=== PATIENT | female | born 1945 | race Caucasian/White ===

== ENCOUNTER 2021-03-10 13:41 | Inpatient (IN) | payer OTHER, SELFPAY ==
[2021-03-10] VITALS (14 sets, daily range): BP systolic 110–150; BP diastolic 53–67; PULSE 65–104; RESP 10–20; TEMP 36.3–37.2; O2SAT 96–100; BMI 29.4
--- NOTE | 2021-03-10 13:45 | ED_ITS ---
HPI - GI Bleed General Chief complaint: GI Bleed Stated complaint: rectal bleeding, started 3 days ago, shaky, weak Time Seen by Provider: 03/10/21 13:44 Source: patient and family Mode of arrival: Ambulatory Limitations: no limitations History of Present Illness HPI Narrative: 75-year-old female nonsmoker with noncontributory medical history presents with a chief complaint of painless bright red bleeding per rectum over the past few days which has progressively become dark and is now black. She is dizzy, weak, lightheaded and short of breath. She denies any history of alcohol abuse, blood thinners, use of NSAIDs, gastritis or known ulcers. Her last colonoscopy was many years ago and she does not recall any significant or memorable diagnoses as a consequence. She has had no vomiting and denies any pain whatsoever. She denies chest pain. She gets significantly short of breath and fatigued with minimal exertion. Related Data Home Medications Medication Instructions Recorded Confirmed levothyroxine 88 mcg PO DAILY 03/10/21 03/10/21 Allergies Allergy/AdvReac Type Severity Reaction Status Date / Time No Known Drug Allergies Allergy Verified 03/10/21 14:07 Review of Systems Constitutional Constitutional: Denies chills, Reports fatigue, Denies fever(s), Denies frequent falls, Denies lethargy and Reports weakness Eyes Eyes: Denies change in vision, Denies eye discharge, Denies irritation and Denies loss of vision ENT Ears, Nose, Mouth, and Throat: Denies change in voice, Denies dizziness, Denies neck pain, Denies sore throat and Denies throat swelling Cardiovascular Cardiovascular: Denies chest pain, Denies irregular heart rhythm, Denies lightheadedness, Denies palpitations, Denies dyspnea, Denies dyspnea on exertion and Denies orthopnea Respiratory Respiratory: Denies cough, Denies dyspnea, Denies dyspnea on exertion and Denies wheezing Gastrointestinal Gastrointestinal: Denies abdominal pain, Reports hematochezia, Denies change in bowel habits, Denies diarrhea, Denies nausea and Denies vomiting Musculoskeletal Musculoskeletal: Denies neck pain and Denies numbness Integumentary/Breasts Skin/Breast: Denies pruritus, Denies erythema, Denies rash and Denies wounds Neurologic Neurologic: Denies behavioral changes, Denies confusion, Denies dizziness, Denies frequent falls, Denies loss of vision, Denies numbness and Reports weakness Psychiatric Psychiatric: Denies anxiety, Denies behavioral changes, Denies confusion, Denies depression, Denies homicidal ideation and Denies suicidal ideation Endocrine Endocrine: Reports fatigue, Denies flushing and Denies palpitations Hematologic/Lymphatic Hematologic/Lymphatic: Denies easy bruising Allergic/Immunologic Allergic/Immunologic: Denies urticaria, Denies throat swelling and Denies wheezing Patient History Medical History Hypothyroidism Osteoarthritis Surgical History H/O: hysterectomy History of bilateral knee replacement History of hip surgery Social History household members: spouse Smoking Status: Never smoker Smoking Status: Never smoker alcohol intake frequency: 0-2 drinks per day Substance Use Type: does not use Exam Narrative Exam Narrative: GENERAL: [75] year old patient appears stated age. Well- nourished, well-developed patient, in moderate distress, significantly short of breath with exertion required to get herself into the exam room. HEAD: Atraumatic. Normocephalic. EYES: Pale conjunctiva, Pupils equal round and reactive. Extraocular motions intact. No scleral icterus. No injection or drainage. ENT: Nose without bleeding, purulent drainage. Throat without erythema, tonsillar hypertrophy or exudate. Airway patent. NECK: Trachea midline. Non tender CARDIOVASCULAR: Tachycardic but right rhythm without murmurs, gallops, or rubs. RESPIRATORY: Clear to auscultation. Breath sounds equal bilaterally. No wheezes, rales, or rhonchi. GASTROINTESTINAL: Abdomen soft, non-tender, nondistended. RECTAL: Dark, heme-positive stool, no obvious hemorrhoid or fissure. Performed with patient permission and female nursing feed research aide at the bedside EXTREMITIES: No edema or joint tenderness. BACK: Nontender without deformity or crepitance. No flank tenderness. NEURO: AOx3. SKIN: No rash or erythema of visible areas Initial Vital Signs Initial Vital Signs: Vital Signs Temperature 98.1 F 03/10/21 13:42 Pulse Rate 104 H 03/10/21 13:42 Respiratory Rate 18 03/10/21 13:42 Blood Pressure 150/67 H 03/10/21 13:42 Pulse Oximetry 99 03/10/21 13:42 Course Orders Ordered: ED Orders 03/10/21 13:57 Complete Blood Count AUTO DIFF Stat Comprehensive Metabolic Panel Stat Packed Cells Stat Partial Thromboplastin Time Stat Prothrombin Time INR Stat Type and Screen Stat 03/10/21 14:45 COVID19 - ADMIT (OVEN PRESS TENDER swab/PCR) Stat Acetaminophen (Acetaminophen 325 Mg Tablet) 650 mg PO Q6HR PRN PRN Reason: Fever/Mild Pain (1-3) Sodium Chloride (Normal Saline 0.9%) 1,000 mls @ 75 mls/hr IV CONT JOAQUIN Sodium Chloride (Normal Saline 0.9%) 250 mls @ 21 mls/hr IV Q24H PRN PRN Reason: Flush Last Admin: 03/10/21 17:59 Dose: 21 mls/hr Documented by: LAMBERT Morphine Sulfate (Morphine 2 Mg/Ml Inj) 2 mg IV Q4HR PRN PRN Reason: Pain, Moderate (4-6) Naloxone HCl (Naloxone 0.4 Mg/Ml Vial) 0.2 mg IV Q2MIN PRN PRN Reason: Opiate Reversal Ondansetron HCl (Ondansetron 4 Mg/2 Ml Inj) 4 mg IV Q8HR PRN PRN Reason: Nausea And Vomiting Pantoprazole Sodium (Pantoprazole 40 Mg Vial) 40 mg IV BID JOAQUIN Polyethylene Glycol/Electrolytes ([id number]/Sod Sulf,Bicarb,Cl/Kcl 4,000 Ml Solution) 2,000 ml PO 0600 JOAQUIN Discontinued Medications Influenza Virus Vaccine (Influenza Vaccine 0.5 Ml Syringe) 0.5 ml IM .ONCE ONE Stop: 03/10/21 17:49 Last Admin: 03/10/21 18:10 Dose: 0.5 ml Documented by: RERERAMTrish Ondansetron HCl (Ondansetron 4 Mg/2 Ml Inj) 4 mg IV NOW ONE Stop: 03/10/21 13:54 Last Admin: 03/10/21 14:04 Dose: 4 mg Documented by: MARIA ELENA Pantoprazole Sodium (Pantoprazole 40 Mg Vial) 40 mg IV NOW ONE Stop: 03/10/21 15:08 Last Admin: 03/10/21 15:51 Dose: 40 mg Documented by: MARIA ELENA Polyethylene Glycol/Electrolytes ([id number]/Sod Sulf,Bicarb,Cl/Kcl 4,000 Ml Solution) 4,000 ml PO NOW ONE Stop: 03/10/21 17:39 Consultations Consultation #1: Dr. Loomis has been contacted, she is happy with our plan and will be happy to be involved when consulted by hospitalist service Vital Signs Vital signs: Vital Signs - 8 hr 03/10/21 13:42 03/10/21 15:00 03/10/21 15:24 Temperature 98.1 F 98.3 F Pulse Rate 104 H 73 76 Respiratory Rate 18 20 14 Blood Pressure 150/67 H 115/57 L 122/58 L Pulse Oximetry 99 96 03/10/21 15:39 03/10/21 16:00 03/10/21 16:24 Temperature 97.9 F 98 F Pulse Rate 76 77 77 Respiratory Rate 17 16 20 Blood Pressure 121/55 L 115/56 L 115/56 L Pulse Oximetry 99 03/10/21 16:43 03/10/21 17:00 Temperature 97.9 F Pulse Rate 72 73 Respiratory Rate 15 19 Blood Pressure 110/53 L 110/53 L Pulse Oximetry 96 MDM - GI Bleed Lab Data Result diagrams: 03/10/21 13:57 03/10/21 13:57 Labs: Lab Results 03/10/21 03/10/21 03/10/21 Range/Units 13:57 13:57 13:57 WBC 10.1 (4.5-11.0) X10^3/uL RBC 2.46 L (4.0-5.2) X10^6/uL Hgb 7.1 L (12.0-16.0) g/dL Hct 21.3 L (36-46) % MCV 86.7 (80-100) fL MCH 29.0 (26-34) PG MCHC 33.4 (30-36) % RDW 13.7 (11.6-14.8) % Plt Count 245 (150-400) X10^3/uL Neut % (Auto) 70.1 (50-75) % Lymph % (Auto) 21.3 L (25-40) % [place] % (Auto) 6.5 (3-14) % Eos % (Auto) 0.9 L (2-4) % Baso % (Auto) 1.2 (0-2) % Neut # (Auto) 7100 H (4881-4675) /uL Lymph # (Auto) 2100 (9596-3969) /uL [place] # (Auto) 700 (0-900) /uL Eos # (Auto) 100 (0-450) /uL Baso # (Auto) 100 (0-100) /uL PT 11.3 (10.1-12.7) SECONDS INR 1.0 (0.9-1.3) APTT 28 (26.4-36.2) SECONDS Sodium 137 (137-145) mmol/L Potassium 3.7 (3.4-5.1) mmol/L Chloride 107 (98-107) mmol/L Carbon Dioxide 22 (22-32) mmol/L BUN 18 H (7-17) mg/dL Creatinine 0.72 (0.52-1.04) mg/dL Estimated GFR > 60.0 (>60) mL/min BUN/Creatinine Ratio 25.0 H (6-22) Glucose 136 H (80-110) mg/dL Calcium 8.7 (8.4-10.2) mg/dL Total Bilirubin 0.1 L (0.2-1.3) mg/dL AST 46 H (14-36) IU/L ALT 41 H (<35) IU/L Alkaline Phosphatase 81 (38-126) U/L Total Protein 6.7 (6.3-8.2) g/dL Albumin 3.7 (3.5-5.0) g/dL Globulin 3.0 (1.7-4.1) g/dL Albumin/Globulin Ratio 1.2 (1.0-2.8) SARS-CoV-2 (PCR) (Negative) Blood Type Antibody Screen Crossmatch 03/10/21 03/10/21 Range/Units 13:57 14:45 WBC (4.5-11.0) X10^3/uL RBC (4.0-5.2) X10^6/uL Hgb (12.0-16.0) g/dL Hct (36-46) % MCV (80-100) fL MCH (26-34) PG MCHC (30-36) % RDW (11.6-14.8) % Plt Count (150-400) X10^3/uL Neut % (Auto) (50-75) % Lymph % (Auto) (25-40) % [place] % (Auto) (3-14) % Eos % (Auto) (2-4) % Baso % (Auto) (0-2) % Neut # (Auto) (3863-7756) /uL Lymph # (Auto) (4185-5706) /uL [place] # (Auto) (0-900) /uL Eos # (Auto) (0-450) /uL Baso # (Auto) (0-100) /uL PT (10.1-12.7) SECONDS INR (0.9-1.3) APTT (26.4-36.2) SECONDS Sodium (137-145) mmol/L Potassium (3.4-5.1) mmol/L Chloride (98-107) mmol/L Carbon Dioxide (22-32) mmol/L BUN (7-17) mg/dL Creatinine (0.52-1.04) mg/dL Estimated GFR (>60) mL/min BUN/Creatinine Ratio (6-22) Glucose (80-110) mg/dL Calcium (8.4-10.2) mg/dL Total Bilirubin (0.2-1.3) mg/dL AST (14-36) IU/L ALT (<35) IU/L Alkaline Phosphatase (38-126) U/L Total Protein (6.3-8.2) g/dL Albumin (3.5-5.0) g/dL Globulin (1.7-4.1) g/dL Albumin/Globulin Ratio (1.0-2.8) SARS-CoV-2 (PCR) Negative (Negative) Blood Type A Negative Antibody Screen Negative Crossmatch See Detail Point of Care Testing Stool Occult Blood Positive Urine Dip Bedside Urine Glucose Negative Bedside Urine Bilirubin - Negative Bedside Urine Ketone - Negative Urine Specific Clarinda 1.015 Bedside Urine Occult Blood - Negative Bedside Urine pH 6.0 Bedside Urine Protein - Negative Bedside Urine Urobilinogen - Negative Bedside Urine Nitrite - Negative Bedside Urine Leukocytes - Negative Esterase Discharge Plan Departure Patient Disposition: Admitted as Observation Clinical Impression: Lower gastrointestinal hemorrhage Admit Date/Time: 03/10/21 17:07 Admit Provider: Rodolfo Lainez
[2021-03-10] MEDS: ONDANSETRON 4 MG/2 ML INJ IV (14:04)
[2021-03-10 14:08] LABS: Add Manual Diff / Slide Review NO; Basophils Absolute Auto 100 /uL (0-100); Basophils Percent Auto 1.2 % (0-2); Eosinophils Absolute Auto 100 /uL (0-450); Eosinophils Percent Auto 0.9 % (2-4); Hematocrit 21.3 % (36-46); Hemoglobin 7.1 g/dL (12.0-16.0); Lymphocytes Absolute Auto 2100 /uL (1100-4500); Lymphocytes Percent Auto 21.3 % (25-40); Mean Corpuscular HGB Conc 33.4 % (30-36); Mean Corpuscular Volume 86.7 fL (80-100); Monocytes Absolute Auto 700 /uL (0-900); Monocytes Percent Auto 6.5 % (3-14); Neutrophils Absolute Auto 7100 /uL (1500-7000); Neutrophils Percent Auto 70.1 % (50-75); Platelet Count 245 X10^3/uL (150-400); Red Blood Cell Count 2.46 X10^6/uL (4.0-5.2); Red Cell Distribution Width 13.7 % (11.6-14.8); White Blood Cell Count 10.1 X10^3/uL (4.5-11.0)
[2021-03-10 14:17] LABS: Prothrombin Time 11.3 SECONDS (10.1-12.7)
[2021-03-10 14:20] LABS: PTT Partial Thromboplastin Tim 28 SECONDS (26.4-36.2)
[2021-03-10 14:26] LABS: Alanine Aminotransferase 41 IU/L (<35); Albumin 3.7 g/dL (3.5-5.0); Albumin Globulin Ratio 1.2 (1.0-2.8); Alkaline Phosphatase 81 U/L (38-126); Aspartate Aminotransferase 46 IU/L (14-36); Bilirubin Total 0.1 mg/dL (0.2-1.3); Blood Urea Nitrogen 18 mg/dL (7-17); Calcium 8.7 mg/dL (8.4-10.2); Carbon Dioxide 22 mmol/L (22-32); Chloride 107 mmol/L (98-107); Estimated Glomerular Filt Rate > 60.0 mL/min (>60); Glucose 136 mg/dL (80-110); HEMOLYSIS < 15 (0-50); Potassium 3.7 mmol/L (3.4-5.1); Sodium 137 mmol/L (137-145); Total Protein 6.7 g/dL (6.3-8.2)
--- NOTE | 2021-03-10 15:43 | PM.CN ---
History of Present Illness Consult details Date Patient Seen: 03/10/21 Time Patient Seen: 19:14 Chief complaint: rectal bleeding, started 3 days ago, shaky, weak Reason for consult: GI bleed Requesting provider: Aneudy Ovalle Narrative: This is a 75-year-old woman with h/o osteoarthritis and hypothyroidism who presented to the ER with c/o 3 days of rectal bleeding and LE edema. She initally had several large bloody bowel movements, which have then transitioned over several days smaller amounts of black stools. She c/o being more short of breath and dizzy with exertion. She denies any chest pain, palpitations, orthopnea. She does report lower extremity edema. She denies prior GI bleeding. She takes Aleve and tylenol from time to time. She has taken 18 ibuprofen over the four days prior to starting to bleed. She had a mild upset stomach yesterday with this had largely resolved. She reports mild nausea, denies vomiting including hematemesis. Her last colonoscopy was more than 15 years ago. Since then she does yearly cologuard tests. She denies any lower abdominal pain. She denies any history of family members with colon cancer. ROS: Constitutional: Denies chills, Reports fatigue, Denies fever(s), Denies frequent falls, Denies lethargy and Reports weakness Eyes: Denies change in vision, Denies eye discharge, Denies irritation and Denies loss of vision Ears, Nose, Mouth, and Throat: Denies change in voice, Denies dizziness, Denies neck pain, Denies sore throat and Denies throat swelling Cardiovascular: Denies chest pain, Denies irregular heart rhythm, Denies lightheadedness, Denies palpitations, Denies dyspnea, Denies dyspnea on exertion and Denies orthopnea Respiratory: Denies cough, Denies dyspnea, Denies dyspnea on exertion and Denies wheezing Gastrointestinal: Denies abdominal pain, Reports hematochezia, Denies change in bowel habits, Denies diarrhea, Denies nausea and Denies vomiting Musculoskeletal: Denies neck pain and Denies numbness Skin/Breast: Denies pruritus, Denies erythema, Denies rash and Denies wounds Neurologic: Denies behavioral changes, Denies confusion, Denies dizziness, Denies frequent falls, Denies loss of vision, Denies numbness and Reports weakness Psychiatric: Denies anxiety, Denies behavioral changes, Denies confusion, Denies depression, Denies homicidal ideation and Denies suicidal ideation Endocrine: Reports fatigue, Denies flushing and Denies palpitations Hematologic/Lymphatic: Denies easy bruising Allergic/Immunologic: Denies urticaria, Denies throat swelling and Denies wheezing PE: GENERAL: Well groomed and cooperative. Appears stated age. Answers questions promptly and appropriately. Vital signs noted. HENT: Normocephalic, atraumatic. Hearing intact. EYES: Conjunctiva pink, sclera white, no periorbital swelling. CARDIOVASCULAR: Regular rate. trace BL pedal edema. RESPIRATORY: Non-tachypneic, breathing comfortably on room air. GASTROINTESTINAL: Abdomen soft and non-distended; nontender GENITALURINARY: No flank tenderness. MUSCULOSKELETAL: Equal tone and mass bilaterally. SKIN: Warm, dry, soft, appropriate color for ethnicity. No other lesions, rashes, or wounds. NEURO: Alert and Oriented X 3. No gross sensory deficits, or cognitive issues. PSYCH: Appropriate affect and mood. Meds Home Medications and Allergies Home Medications Medication Instructions Recorded Confirmed Type levothyroxine 88 mcg PO DAILY 03/10/21 03/10/21 History Allergies Allergy/AdvReac Type Severity Reaction Status Date / Time No Known Drug Allergies Allergy Verified 03/10/21 14:07 Exam Vital Signs (past 8 hours): - 03/10/21 13:42 03/10/21 15:24 Temperature 98.1 F 98.3 F Pulse Rate 104 H 76 Respiratory Rate 18 14 Blood Pressure 150/67 H 122/58 L Pulse Oximetry 99 Oxygen Delivery Method Room Air Objective Labs Result Diagrams: 03/10/21 13:57 03/10/21 13:57 Labs: Laboratory Results - last 24 hr 03/10/21 03/10/21 03/10/21 13:57 13:57 13:57 WBC 10.1 RBC 2.46 L Hgb 7.1 L Hct 21.3 L MCV 86.7 MCH 29.0 MCHC 33.4 RDW 13.7 Plt Count 245 Neut % (Auto) 70.1 Lymph % (Auto) 21.3 L [place] % (Auto) 6.5 Eos % (Auto) 0.9 L Baso % (Auto) 1.2 Neut # (Auto) 7100 H Lymph # (Auto) 2100 [place] # (Auto) 700 Eos # (Auto) 100 Baso # (Auto) 100 PT 11.3 INR 1.0 APTT 28 Sodium 137 Potassium 3.7 Chloride 107 Carbon Dioxide 22 BUN 18 H Creatinine 0.72 Estimated GFR > 60.0 BUN/Creatinine Ratio 25.0 H Glucose 136 H Calcium 8.7 Total Bilirubin 0.1 L AST 46 H ALT 41 H Alkaline Phosphatase 81 Total Protein 6.7 Albumin 3.7 Globulin 3.0 Albumin/Globulin Ratio 1.2 Blood Type Antibody Screen Crossmatch 03/10/21 13:57 WBC RBC Hgb Hct MCV MCH MCHC RDW Plt Count Neut % (Auto) Lymph % (Auto) [place] % (Auto) Eos % (Auto) Baso % (Auto) Neut # (Auto) Lymph # (Auto) [place] # (Auto) Eos # (Auto) Baso # (Auto) PT INR APTT Sodium Potassium Chloride Carbon Dioxide BUN Creatinine Estimated GFR BUN/Creatinine Ratio Glucose Calcium Total Bilirubin AST ALT Alkaline Phosphatase Total Protein Albumin Globulin Albumin/Globulin Ratio Blood Type A Negative Antibody Screen Negative Crossmatch See Detail Assessment & Plan Assessment and plan (1) Lower gastrointestinal hemorrhage: Status: Acute (2) Hypothyroidism: Status: Inactive Assessment & Plan narrative: This is a 75-year-old woman who came into the ER with 3 days of bright red blood per rectum. Sounds like she does at times take a significant amount of NSAIDs, especially in this past week. She says she took 18 ibuprofen between Wednesday and Wednesday. She denies any rectal pain, abdominal pain, perianal swelling, prolapsing tissue from the rectum. She reports some nausea and a little bit of epigastric discomfort. I discussed with her the risks and benefits of EGD and colonoscopy to rule out an upper lower GI bleed. Risk of bleeding or perforation, and the risks of anesthesia were discussed. The patient would like to go ahead with both upper and lower endoscopy. She is getting transfused right now. I recommend that she start bowel prep this evening, and take a 2nd round a bowel prep in the morning, concluding everything by 8:00 a.m.. She can have clear liquids to drink this evening, and should stop all additional clear liquids at 8:00 a.m.. Clear liquids until six AM 4L golytely now 2L golytely at 6AM EGD and colonoscopy tomorrow at 12PM
[2021-03-10] MEDS: PANTOPRAZOLE 40 MG VIAL IV ×2 (15:51→20:58)
[2021-03-10 16:43] LABS: COVID19 - ADMIT (NP swab/PCR) Negative (Negative)
[2021-03-10] MEDS: SODIUM CHLORIDE 0.9% 250 ML 21 ML IV (17:59)
--- NOTE | 2021-03-10 18:08 | PM.HP.1 ---
History of Present Illness History of Present Illness Date Patient Seen: 03/10/21 Time Patient Seen: 18:10 Chief complaint: rectal bleeding, started 3 days ago, charles sandoval Narrative: This is a 75-year-old female with a past medical history of osteoarthritis and hypothyroidism who presented to the emergency room with fatigue and rectal bleeding that started 3 days ago. Patient was recently in [place] with her family, having left on Wednesday. During the airport on her return trip home she noticed that she was quite a bit more fatigued after walking the length of the airport. Once arriving at home she largely stayed in bed but then later that evening had an episode bright red blood per rectum. It was large and then over the next day transition to a smaller and smaller amount of very black stools. She denies being any more pale than usual this time but was quite a bit more short of breath and dizzy with exertion. She denies any chest pain, palpitations, orthopnea, or lower extremity edema. She denies prior GI bleeding, her grandson stepped on her right ankle and had been taking some NSAIDs over the prior few days. She had a mild upset stomach yesterday with this had largely resolved, and she denies any nausea, or vomiting including hematemesis. Her last colonoscopy was more than 15 years ago but the patient has been doing either FOBT testing or fit testing every year which has been unremarkable to this point. She denies any previous issues with anesthesia. She denies any history of family members with colon cancer. In the emergency room, the patient was mildly tachycardic and initially hypertensive. She was saturating well on room air. Initial lab evaluation showed a hemoglobin of 7.1 with no other remarkable findings on CBC, MCV is 86.7. Coagulation studies were unremarkable. Chemistries showed a mildly elevated glucose at 1:36 a.m., mild elevations in her transaminase levels at AST of 46 and ALT of 41 respectively. COVID-19 testing was negative. She was ordered for 2 units of packed red blood cells, I evaluated the patient after her 1st unit and she was asymptomatic and felt improved. Will hold the 2nd unit for now pending repeat H&H. If it has responded appropriately, will discontinue her 2nd unit. Patient was admitted under observation status for acute blood loss anemia secondary to GI bleed. According to General surgery, Dr. Loomis, plan is for EGD and colonoscopy tomorrow at noon and she should receive 4 L of GoLYTELY this evening, with 2 L to be given tomorrow morning at 6:00 a.m.. Patient History Medical History Hypothyroidism Osteoarthritis Surgical History H/O: hysterectomy History of bilateral knee replacement History of hip surgery Family & Social History Social History: household members spouse Prior Living Arrangements House Safety & Behavioral: Feels Safe in Current Yes Environment Been Physically Hurt or No Threatened By a Person Tobacco & Substance use: Smoking Status Never smoker alcohol intake frequency 0-2 drinks per day Substance Use Type reports rare edible marijuana Meds Home Medications and Allergies Home Medications Medication Instructions Recorded Confirmed Type levothyroxine 88 mcg PO DAILY 03/10/21 03/10/21 History Allergies Allergy/AdvReac Type Severity Reaction Status Date / Time No Known Drug Allergies Allergy Verified 03/10/21 14:07 Review of Systems Review of Systems Narrative: All other systems reviewed with the patient and are negative unless otherwise stated. Exam Vital Signs (past 8 hours): - 03/10/21 13:42 03/10/21 15:00 03/10/21 15:24 Temperature 98.1 F 98.3 F Pulse Rate 104 H 73 76 Respiratory Rate 18 20 14 Blood Pressure 150/67 H 115/57 L 122/58 L Pulse Oximetry 99 96 03/10/21 15:39 03/10/21 16:00 03/10/21 16:24 Temperature 97.9 F 98 F Pulse Rate 76 77 77 Respiratory Rate 17 16 20 Blood Pressure 121/55 L 115/56 L 115/56 L Pulse Oximetry 99 03/10/21 16:43 03/10/21 17:00 03/10/21 17:15 Temperature 97.9 F 98.3 F Pulse Rate 72 73 77 Respiratory Rate 15 19 10 L Blood Pressure 110/53 L 110/53 L 122/58 L Pulse Oximetry 96 98 Oxygen Delivery Method Room Air Oxygen Flow Rate 0 Narrative Exam Narrative: GENERAL APPEARANCE: Well developed, well nourished, in no acute distress. SKIN: Inspection of the skin reveals no rashes, ulcerations or petechiae. HEENT: Normocephalic atraumatic, extraocular muscles are intact, oropharynx is clear and mucous membranes are moist, neck is supple without adenopathy NECK: Supple and symmetric. There was no thyroid enlargement, and no tenderness, or masses were felt. CHEST: Normal AP diameter and normal contour without any kyphoscoliosis. LUNGS: Auscultation of the lungs revealed no wheezes, rhonchi, or rales. CARDIOVASCULAR: There was a regular rate and rhythm without any murmurs, gallops, rubs. Peripheral pulses were 2+ and symmetric. ABDOMEN: Soft and nontender with normal bowel sounds. No ascites was noted. MUSCULOSKELETAL: There was mild tenderness to the patient's right ankle with mild ecchymosis in her ankle. She had no lateral malleolar tenderness, and has been able to ambulate on her ankle without pain. EXTREMITIES: No cyanosis, clubbing or edema. NEUROLOGIC: Alert and oriented x 3. Normal affect. Gait was normal. Strength is +5/5 in the Upper Extremities and Lower Extremities Bilaterally. Sensation to touch was normal. Objective Labs Result Diagrams: 03/10/21 13:57 03/10/21 13:57 Labs: Laboratory Results - last 24 hr 03/10/21 03/10/21 03/10/21 13:57 13:57 13:57 WBC 10.1 RBC 2.46 L Hgb 7.1 L Hct 21.3 L MCV 86.7 MCH 29.0 MCHC 33.4 RDW 13.7 Plt Count 245 Neut % (Auto) 70.1 Lymph % (Auto) 21.3 L [place] % (Auto) 6.5 Eos % (Auto) 0.9 L Baso % (Auto) 1.2 Neut # (Auto) 7100 H Lymph # (Auto) 2100 [place] # (Auto) 700 Eos # (Auto) 100 Baso # (Auto) 100 PT 11.3 INR 1.0 APTT 28 Sodium 137 Potassium 3.7 Chloride 107 Carbon Dioxide 22 BUN 18 H Creatinine 0.72 Estimated GFR > 60.0 BUN/Creatinine Ratio 25.0 H Glucose 136 H Calcium 8.7 Total Bilirubin 0.1 L AST 46 H ALT 41 H Alkaline Phosphatase 81 Total Protein 6.7 Albumin 3.7 Globulin 3.0 Albumin/Globulin Ratio 1.2 SARS-CoV-2 (PCR) Blood Type Antibody Screen Crossmatch 03/10/21 03/10/21 13:57 14:45 WBC RBC Hgb Hct MCV MCH MCHC RDW Plt Count Neut % (Auto) Lymph % (Auto) [place] % (Auto) Eos % (Auto) Baso % (Auto) Neut # (Auto) Lymph # (Auto) [place] # (Auto) Eos # (Auto) Baso # (Auto) PT INR APTT Sodium Potassium Chloride Carbon Dioxide BUN Creatinine Estimated GFR BUN/Creatinine Ratio Glucose Calcium Total Bilirubin AST ALT Alkaline Phosphatase Total Protein Albumin Globulin Albumin/Globulin Ratio SARS-CoV-2 (PCR) Negative Blood Type A Negative Antibody Screen Negative Crossmatch See Detail Assessment & Plan Assessment & Plan narrative: This is a 75-year-old female with a past medical history of osteoarthritis and hypothyroidism who presented to the emergency room with fatigue and rectal bleeding that started 3 days ago. She is admitted under observation status for acute blood loss anemia secondary to GI bleeding, unclear of upper or lower source at this time. 1. Acute blood-loss anemia, present on admission -secondary to GI bleeding as noted below. Patient was symptomatic on admission with dyspnea on exertion and dizziness. She was also mildly tachycardic which improved after 1 unit PRBC transfusion. -will repeat H&H, if it appears that she is responding appropriately will avoid transfusion with a 2nd unit given her hemoglobin was 7.1 on admission. Continue to monitor for evidence of bleeding and transfuse if symptomatic. -probably acute in nature given her relatively normal MCV at 86.7. -will check EKG prior to endoscopy, no complaints of chest pain currently or palpitations. 2. GI bleeding, acute, present on admission -suspect lower GI bleeding given relatively normal BUN 18, and presentation initially with bright red blood per rectum however this does not completely rule out an upper source given that the patient did take NSAID medications recently. -patient was given 40 mg of IV Protonix, will continue IV b.i.d pending results of endoscopy planned for tomorrow. -appreciate general surgery consultation from Dr. Loomis, plan for EGD and colonoscopy tomorrow. 3. Hypothyroidism, chronic -will check TSH, can resume home medications at this time. 4. Osteoarthritis, chronic - tylenol prn, avoid NSAIDs 5. Right ankle bruising, present on admission. -patient reports her grandson stepped on her ankle during their family vacation. She reports no pain with ambulation and is nontender on exam. No need for x-ray imaging at this time but continue supportive care with Tylenol, avoid NSAID medications given bleeding. 6. Transaminitis, present on admission -patient has mild elevations in AST at 46, ALT of 41. Will continue to monitor. Patient has no complaints of abdominal pain. Possibly in the setting acute anemia or DILI as patient did report edible intake while in [place]. Code: Full. Surrogate decision maker is the patient's daugther. Dispo: Admit under observation status as her stay is not expected to exceed 2 midnights. DVT: SCDs given GI bleeding. Quality VTE Deep Vein Thrombosis/Pulmonary Embolism Present on Admission: No
[2021-03-10] MEDS: INFLUENZA VACCINE 0.5 ML SYRINGE IM (18:10)
[2021-03-10] MEDS: PEG3350/SOD SULF,BICARB,CL/KCL 4,000 ML SOLUTION 4000 ML PO (19:12)
[2021-03-10 20:19] LABS: Hematocrit 22.6 % (36-46); Hemoglobin 7.6 g/dL (12.0-16.0)
--- NOTE | 2021-03-10 22:23 | PC.NURSE ---
End of shift note: Pt admitted with DX GI Bleed. 1 Unit PrBC given in ED and second unit help per MD order. VSS, IV saline locked. Golytely bowel prep taken without difficulty over approx 3.5 hrs. Pt's last stool was clear yellow. PO liquids tolerated well without nausea. No bright red bleeding noted.
[2021-03-10] MEDS: SODIUM CHLORIDE 0.9% 1,000 ML 75 ML IV (23:47)
[2021-03-11] VITALS (59 sets, daily range): BP systolic 83–151; BP diastolic 34–70; PULSE 62–88; RESP 8–62; TEMP 35.9–36.8; O2SAT 40–100
--- NOTE | 2021-03-11 | PATH_ITS ---
[facility] Accession Number: [id number] . 01 Material submitted: . PART A: duodenum - DUODENUM PART B: stomach - STOMACH PART C: esophagus - DISTAL ESOPHAGUS . 02 Diagnosis: A. Duodenum, Biopsy: Duodenal mucosa with patchy gastric surface foveolar metaplasia consistent with peptic duodenitis. Negative for intraepithelial lymphocytosis or villous blunting. Negative for dysplasia and malignancy. . B. Stomach, Biopsy: Body-type mucosa with no diagnostic abnormality. Negative for Helicobacter by immunohistochemistry. Negative for intestinal metaplasia. Negative for dysplasia and malignancy. . C. Distal Esophagus, Biopsy: Columnar mucosa with no diagnostic abnormality. Negative for intestinal metaplasia. Negative for dysplasia and malignancy. [facility] 03/19/2021 1212 Local . 02 Electronically signed: . Tamara Simeon MD, Pathologist NPI- [id number] . 01 Gross description: . Part A: DUODENUM: Received in formalin is 1 fragment(s) of navas, soft tissue measuring 0.3 x 0.1 x 0.1 cm submitted entirely in 1 cassette(s) Part B: STOMACH: Received in formalin is 1 fragment(s) of navas, soft tissue measuring 0.2 x 0.2 x 0.2 cm submitted entirely in 1 cassette(s) Part C: DISTAL ESOPHAGUS: Received in formalin are 2 fragment(s) of navas, soft tissue measuring 0.1 x 0.1 x 0.1 cm to 0.4 x 0.1 x 0.1 cm submitted entirely in 1 cassette(s) /STEPHAN 03/12/20212021 Local . 02 Microscopic: . B. An immunohistochemical stain was performed to evaluate for Helicobacter organisms and is negative. The control stain showed appropriate reactivity. . C. An alcian blue stain was performed to evaluae for intestinal metaplasia and is negative. A control stain showed appropriate reactivity. . . . . * This test was developed and its performance characteristics determined by [facility]. It has not been cleared or approved by the U.S. Food and Drug Administration. The FDA has determined that such clearance or approval is not necessary. This test is used for clinical purposes. It should not be regarded as investigational or for research. . 02 Pathologist provided ICD-10: R10.9 . 02 CPT . 179036, 094537, 654436, 394544, W50365 Performed at: 01 [facility] [address] [place] [address], [place], [place] [id number] MD Yazan Ventura MD Phone: [phone] Performed at: 02 [facility] [address] [place] [id number] MD Tamara Simeon MD Phone: [phone]
[2021-03-11 05:27] LABS: Add Manual Diff / Slide Review NO; Basophils Absolute Auto 100 /uL (0-100); Basophils Percent Auto 0.9 % (0-2); Eosinophils Absolute Auto 200 /uL (0-450); Eosinophils Percent Auto 2.5 % (2-4); Hemoglobin 7.1 g/dL (12.0-16.0); Lymphocytes Absolute Auto 2500 /uL (1100-4500); Lymphocytes Percent Auto 33.8 % (25-40); Mean Corpuscular HGB Conc 34.1 % (30-36); Mean Corpuscular Hemoglobin 29.4 PG (26-34); Mean Corpuscular Volume 86.4 fL (80-100); Monocytes Absolute Auto 600 /uL (0-900); Neutrophils Absolute Auto 4100 /uL (1500-7000); Neutrophils Percent Auto 54.8 % (50-75); Platelet Count 195 X10^3/uL (150-400); Red Blood Cell Count 2.42 X10^6/uL (4.0-5.2); Red Cell Distribution Width 14.1 % (11.6-14.8); White Blood Cell Count 7.5 X10^3/uL (4.5-11.0)
[2021-03-11 05:32] LABS: Hematocrit 20.9 % (36-46)
[2021-03-11 05:33] LABS: Alanine Aminotransferase 37 IU/L (<35); Albumin 2.7 g/dL (3.5-5.0); Albumin Globulin Ratio 1.1 (1.0-2.8); Alkaline Phosphatase 64 U/L (38-126); Aspartate Aminotransferase 39 IU/L (14-36); Bilirubin Total < 0.1 mg/dL (0.2-1.3); Bilirubin Unconjugated 0.1 mg/dL (0.0-1.1); Globulin 2.4 g/dL (1.7-4.1); HEMOLYSIS < 15 (0-50); Total Protein 5.1 g/dL (6.3-8.2)
[2021-03-11 05:36] LABS: HEMOLYSIS < 15 (0-50); Potassium 3.7 mmol/L (3.4-5.1)
[2021-03-11 05:37] LABS: BUN Creatinine Ratio 18.8 (6-22); Blood Urea Nitrogen 13 mg/dL (7-17); Calcium 7.4 mg/dL (8.4-10.2); Carbon Dioxide 26 mmol/L (22-32); Chloride 108 mmol/L (98-107); Estimated Glomerular Filt Rate > 60.0 mL/min (>60); Glucose 114 mg/dL (80-110); Sodium 138 mmol/L (137-145)
[2021-03-11 06:03] LABS: TSH w/ Reflex to FT4 1.81 uIU/mL (0.47-4.68)
[2021-03-11] MEDS: PEG3350/SOD SULF,BICARB,CL/KCL 4,000 ML SOLUTION 2000 ML PO (06:09)
[2021-03-11] MEDS: PANTOPRAZOLE 40 MG VIAL IV ×2 (08:42→21:19)
--- NOTE | 2021-03-11 11:37 | CM.DANOTE ---
DCP: Case received, EMR reviewed and met with patient. Introduced self and role. Was able to obtain information regarding patient's baseline activity status prior to hospitalization, as well as her current living situation. DCP assessment completed with information currently available. Patient is a 75 year old female who admitted yesterday afternoon to the care of the hospitalist team. PCP: Dr. Charity Gramajo at the [facility], in [place]. Payer: confirmed: [facility] [employer]. Patient came to the hospital via private vehicle secondary to having rectal bleeding which had started a couple of days ago, as well as an increase in weakness. Patient holds diagnosis of Anemia secondary to GI bleed. Patient did have a blood transfusion when she was initially in the ER. Patient is having a colonoscopy today. Met with patient in her room. She had been up a few times, prior to visit using commode secondary to prep for procedure. She is independent at her baseline. She resides in [place] alone. She does have a daughter named Demetria Cox who lives here in [place]. Patient's provider is in [place]. P: DCP to continue to follow. She will have her colonoscopy today. She may be ready to DC today depending on results of procedure. Erin Johnson RN/[employer]
--- NOTE | 2021-03-11 12:06 | PC.NURSE ---
pt taken to OR for scheduled scope- vss and pt has tolerated prep well
--- NOTE | 2021-03-11 12:08 | PM.PREOP ---
Pre-operative Note COVID-19 COVID-19 status: Negative Result date/Date tested (Pos, Neg/Pending): 03/10/21 Interval Note History & Physical reviewed/Exam performed by Physician: Yes Changes to H&P: Yes H&P completed within 30 days and has changed as indicated here:: Patient has received two units of blood and has completed bowel prep. ASA Class (for procedural sedation): III
--- NOTE | 2021-03-11 12:17 | P.OP.ENDO_ITS ---
Operative Date/Time/Diagnoses Date of procedure: 03/11/21 Time of procedure: 12:17 Pre-op diagnosis: GI bleed Procedure & Clinicians Study performed: Esophagogastroduodenoscopy Biopsies of duodenum, stomach, distal esophagus with standard forceps Colonoscopy Procedural sedation performed by the endoscopist Same procedure as scheduled: Yes Indications: GI bleed Surgeon: Sarina Loomis Procedure Notes SCOAP/Timeout: Performed Procedure in detail: The patient was brought to the room and placed in left lateral decubitus position with all bony prominences padded. A bite block was positioned in the patient's mouth to protect the lips, teeth, and tongue for the procedure. A time-out was performed and then the patient was given procedural sedation starting with 2 mg of Versed and 100 mcg of fentanyl. Vitals were monitored throughout the procedure and remained stable. Once adequately sedated, the procedure was begun. The lubricated gastroscope was passed through the bite block and across the tongue and into the esophagus without incident. A tubular view of the esophagus was maintained as the scope was advanced through the esophagus and into the stomach. The scope was advanced through the stomach and to the pylorus. The scope was gently popped through the pylorus and into the duodenal bulb. The scope was flexed and advanced into the second and third portions of the duodenum. The 2nd 3rd parts of the duodenum appeared normal. There was some hypertrophy and inflamed appearance of the duodenal bulb. Biopsies were taken. The scope was withdrawn into the stomach. There was evidence of mild endoscopic gastritis. Biopsies were taken. The scope was retroflexed and the gastric cardia was examined. There was a Hill grade 2 hiatal hernia without any evidence of erosions or bleeding. The scope was then straightened, and withdrawn into the esophagus. There were few breaks in the Z- line with a 1-2 cm tongue of salmon-colored mucosa coming up into the esophagus. Biopsies were taken. No evidence of a source of significant bleeding was seen on the upper endoscopy procedure. The scope was then withdrawn through the esophagus with a tubular view. The scope was then withdrawn from the patient and attention was turned to the colonoscopy portion of the procedure. A rectal exam was performed revealing no abnormalities. The colonoscope was then introduced to the rectum and advanced to the cecum in the usual fashion. The cecum was identified by the appendiceal orifice, the mucosal tri-fold, and the ileocecal valve. There was moderate diverticulosis in the ascending, transverse, descending, and sigmoid colon. No evidence of a source of GI bleeding was found. The scope was then retracted while rotating side to side and examining each mucosal fold. At the conclusion of the procedure retroflexion was performed and grade 2 internal hemorrhoids without stigmata of bleeding were seen. The scope was then withdrawn from the rectum the procedure was concluded. The patient tolerated the procedure well and was transferred to the PACU in stable condition. Scope withdrawal time: 6 Sedation minutes: 27 Findings: diverticulosis and gastritis Specimen(s): other (Biopsies of duodenum, stomach, distal esophagus) Complications: none Impression: Moderate diverticulosis, mild gastritis, mild duodenal inflammation. No source of significant GI bleed. Post-procedure Recommendations: Colonscopy in 10 years and Other recommendation (Consider capsule endoscopy as an outpatient if no immediate recurrence of bleeding. If immediate recurrence of bleeding, patient will need to be transferred for an inpatient evaluation of her small intestine.) Follow up: as needed Disposition: PACU
[2021-03-11] MEDS: LIDOCAINE 4% SOLN 50 ML 20 ML TOP (12:51)
[2021-03-11] MEDS: MIDAZOLAM 5 MG/5 ML VIAL IV (12:52)
[2021-03-11] MEDS: fentaNYL 250 MCG/5 ML INJ IV (12:52)
--- NOTE | 2021-03-11 13:25 | P.PN_ITS ---
Subjective Subjective Date Patient Seen: 03/11/21 Time Patient Seen: 13:25 Interval history: This is a 75-year-old female with a past medical history of osteoarthritis and hypothyroidism who presented to the emergency room with fatigue and rectal bleeding that started 3 days prior to admission. Her hemoglobin decreased to 7.1 this morning from 7.6 after transfusion and she received another packed unit of blood today, a total of 2 units so far has been given. Patient continues to deny chest pain, shortness of breath with exertion today, palpitations, nausea, or vomiting. Patient denied any dizziness with standing, she completed a bowel prep in her bowel movements were clear as of this morning. She underwent endoscopy and colonoscopy which showed mild hy pertrophy at the duodenal bulb, and some diverticulae but no overt source of bleeding. Surgery recommended continued monitoring, with plan for a bleeding scan if she bleeds again or if she is stable to look with a capsule endoscopy as an outpatient. Exam Vital Signs (past 8 hours): - 03/11/21 05:31 03/11/21 06:56 03/11/21 08:13 Temperature 97.0 F L 97.0 F L 96.7 F L Pulse Rate 73 70 71 Respiratory Rate 13 17 17 Blood Pressure 113/54 L 125/62 111/67 Pulse Oximetry 100 03/11/21 08:43 03/11/21 09:00 03/11/21 10:30 Temperature 96.7 F L 97.0 F L Pulse Rate 62 66 Respiratory Rate 18 18 Blood Pressure 123/70 151/65 H Pulse Oximetry 92 97 03/11/21 12:00 03/11/21 12:52 03/11/21 12:57 Temperature 97.6 F 97.6 F Pulse Rate 76 71 64 Respiratory Rate 18 8 L 8 L Blood Pressure 125/57 L 88/36 L 91/37 L Pulse Oximetry 100 78 L 92 03/11/21 13:01 03/11/21 13:06 03/11/21 13:11 Temperature Pulse Rate 62 64 63 Respiratory Rate 12 12 14 Blood Pressure 90/34 L 88/38 L 83/36 L Pulse Oximetry 94 93 93 Oxygen Delivery Method Nasal Cannula Oxygen Flow Rate 5 Narrative Exam Narrative: GENERAL APPEARANCE: Well developed, well nourished, in no acute distress. SKIN: Inspection of the skin reveals no rashes, ulcerations or petechiae. HEENT: Normocephalic atraumatic, extraocular muscles are intact, oropharynx is clear and mucous membranes are moist, neck is supple without adenopathy NECK: Supple and symmetric. There was no thyroid enlargement, and no tenderness, or masses were felt. CHEST: Normal AP diameter and normal contour without any kyphoscoliosis. LUNGS: Auscultation of the lungs revealed no wheezes, rhonchi, or rales. CARDIOVASCULAR: There was a regular rate and rhythm without any murmurs, gallops, rubs. Peripheral pulses were 2+ and symmetric. ABDOMEN: Soft and nontender with normal bowel sounds. No ascites was noted. MUSCULOSKELETAL: There was mild tenderness to the patient's right ankle with mild ecchymosis in her ankle. She had no lateral malleolar tenderness, and has been able to ambulate on her ankle without pain. EXTREMITIES: No cyanosis, clubbing or edema. NEUROLOGIC: Alert and oriented x 3. Normal affect. Gait was normal. Strength is +5/5 in the Upper Extremities and Lower Extremities Bilaterally. Sensation to touch was normal. Objective Labs Result Diagrams: 03/11/21 04:53 03/11/21 04:53 Labs: Laboratory Results - last 24 hr 03/10/21 03/10/21 03/10/21 13:57 13:57 13:57 WBC 10.1 RBC 2.46 L Hgb 7.1 L Hct 21.3 L MCV 86.7 MCH 29.0 MCHC 33.4 RDW 13.7 Plt Count 245 Neut % (Auto) 70.1 Lymph % (Auto) 21.3 L [place] % (Auto) 6.5 Eos % (Auto) 0.9 L Baso % (Auto) 1.2 Neut # (Auto) 7100 H Lymph # (Auto) 2100 [place] # (Auto) 700 Eos # (Auto) 100 Baso # (Auto) 100 PT 11.3 INR 1.0 APTT 28 Sodium 137 Potassium 3.7 Chloride 107 Carbon Dioxide 22 BUN 18 H Creatinine 0.72 Estimated GFR > 60.0 BUN/Creatinine Ratio 25.0 H Glucose 136 H Calcium 8.7 Magnesium Total Bilirubin 0.1 L Conjugated Bilirubin Unconjugated Bilirubin AST 46 H ALT 41 H Alkaline Phosphatase 81 Total Protein 6.7 Albumin 3.7 Globulin 3.0 Albumin/Globulin Ratio 1.2 TSH Nasal Screen MRSA (PCR) SARS-CoV-2 (PCR) Blood Type Antibody Screen Crossmatch 03/10/21 03/10/21 03/10/21 13:57 14:45 18:00 WBC RBC Hgb Hct MCV MCH MCHC RDW Plt Count Neut % (Auto) Lymph % (Auto) [place] % (Auto) Eos % (Auto) Baso % (Auto) Neut # (Auto) Lymph # (Auto) [place] # (Auto) Eos # (Auto) Baso # (Auto) PT INR APTT Sodium Potassium Chloride Carbon Dioxide BUN Creatinine Estimated GFR BUN/Creatinine Ratio Glucose Calcium Magnesium Total Bilirubin Conjugated Bilirubin Unconjugated Bilirubin AST ALT Alkaline Phosphatase Total Protein Albumin Globulin Albumin/Globulin Ratio TSH Nasal Screen MRSA (PCR) Negative for mrsa SARS-CoV-2 (PCR) Negative Blood Type A Negative Antibody Screen Negative Crossmatch See Detail 03/10/21 03/11/21 03/11/21 19:06 04:53 04:53 WBC 7.5 RBC 2.42 L Hgb 7.6 L 7.1 L Hct 22.6 L 20.9 L* MCV 86.4 MCH 29.4 MCHC 34.1 RDW 14.1 Plt Count 195 Neut % (Auto) 54.8 Lymph % (Auto) 33.8 [place] % (Auto) 8.0 Eos % (Auto) 2.5 Baso % (Auto) 0.9 Neut # (Auto) 4100 Lymph # (Auto) 2500 [place] # (Auto) 600 Eos # (Auto) 200 Baso # (Auto) 100 PT INR APTT Sodium Potassium Chloride Carbon Dioxide BUN Creatinine Estimated GFR BUN/Creatinine Ratio Glucose Calcium Magnesium Total Bilirubin < 0.1 L Conjugated Bilirubin 0.0 Unconjugated Bilirubin 0.1 AST 39 H ALT 37 H Alkaline Phosphatase 64 Total Protein 5.1 L Albumin 2.7 L Globulin 2.4 Albumin/Globulin Ratio 1.1 TSH Nasal Screen MRSA (PCR) SARS-CoV-2 (PCR) Blood Type Antibody Screen Crossmatch 03/11/21 03/11/21 04:53 04:53 WBC RBC Hgb Hct MCV MCH MCHC RDW Plt Count Neut % (Auto) Lymph % (Auto) [place] % (Auto) Eos % (Auto) Baso % (Auto) Neut # (Auto) Lymph # (Auto) [place] # (Auto) Eos # (Auto) Baso # (Auto) PT INR APTT Sodium 138 Potassium 3.7 Chloride 108 H Carbon Dioxide 26 BUN 13 Creatinine 0.69 Estimated GFR > 60.0 BUN/Creatinine Ratio 18.8 Glucose 114 H Calcium 7.4 L Magnesium 2.0 Total Bilirubin Conjugated Bilirubin Unconjugated Bilirubin AST ALT Alkaline Phosphatase Total Protein Albumin Globulin Albumin/Globulin Ratio TSH 1.81 Nasal Screen MRSA (PCR) SARS-CoV-2 (PCR) Blood Type Antibody Screen Crossmatch [facility] Medical History (Updated 03/10/21 @ 19:23 by Sarina Loomis MD) Hypothyroidism Osteoarthritis Surgical History H/O: hysterectomy History of bilateral knee replacement History of hip surgery Social History household members: spouse Smoking Status: Never smoker Assessment & Plan Assessment & Plan narrative: This is a 75-year-old female with a past medical history of osteoarthritis and hypothyroidism who presented to the emergency room with fatigue and rectal bleeding that started 3 days ago. She is admitted under observation status for acute blood loss anemia secondary to GI bleeding, still unclear of upper or lower source at this time. 1. Acute blood-loss anemia, present on admission -secondary to GI bleeding as noted below. -probably acute in nature given her relatively normal MCV at 86.7. -EKG showed normal sinus rhythm with no evidence of acute ischemia. -Endoscopy and colonoscopy today showed mild hypertrophy at the duodenal bulb, and some diverticulae but no overt source of bleeding. Surgery recommended continued monitoring, with plan for a bleeding scan if she bleeds again or if sh e is stable to look with a capsule endoscopy as an outpatient. - continue to follow h/h, Goal Hg >7. 2. GI bleeding, acute, present on admission -suspect lower GI bleeding given relatively normal BUN 18, and presentation initially with bright red blood per rectum however this does not completely rule out an upper source given that the patient did take NSAID medications recently. -patient was given 40 mg of IV Protonix, will continue IV b.i.d for now. -appreciate general surgery consultation from Dr. Loomis and endoscopies as noted above. 3. Hypothyroidism, chronic -TSH 1.81 showing good control, can resume home medications at this time. 4. Osteoarthritis, chronic - tylenol prn, avoid NSAIDs 5. Right ankle bruising, present on admission. -patient reports her grandson stepped on her ankle during their family vacation. She reports no pain with ambulation and is nontender on exam. No need for x- ray imaging at this time but continue supportive care with Tylenol, avoid NSAID medications given bleeding. 6. Transaminitis, present on admission -patient has mild elevations in AST at 46, ALT of 41. Now improving. Will continue to monitor. Patient has no complaints of abdominal pain. Possibly in the setting acute anemia or DILI as patient did report edible intake while in [place]. Code: Full. Surrogate decision maker is the patient's daugther. Dispo: Admit under observation status as her stay is not expected to exceed 2 midnights. DVT: SCDs given GI bleeding. Quality VTE Deep Vein Thrombosis/Pulmonary Embolism Present on Admission: No
[2021-03-11 16:14] LABS: Hematocrit 25.3 % (36-46); Hemoglobin 8.5 g/dL (12.0-16.0)
[2021-03-11] MEDS: SODIUM CHLORIDE 0.9% 1,000 ML 75 ML IV (16:15)
[2021-03-12 02:00] VITALS: O2SAT 96
[2021-03-12] MEDS: SODIUM CHLORIDE 0.9% 1,000 ML 75 ML IV (04:56)
[2021-03-12 05:00] VITALS: BP 120/60; PULSE 74; RESP 14; TEMP 36.6; O2SAT 94
[2021-03-12 05:26] LABS: Add Manual Diff / Slide Review NO; Basophils Absolute Auto 0 /uL (0-100); Basophils Percent Auto 0.7 % (0-2); Eosinophils Absolute Auto 100 /uL (0-450); Eosinophils Percent Auto 2.5 % (2-4); Hematocrit 23.9 % (36-46); Lymphocytes Absolute Auto 1800 /uL (1100-4500); Lymphocytes Percent Auto 31.4 % (25-40); Mean Corpuscular HGB Conc 33.4 % (30-36); Mean Corpuscular Hemoglobin 28.9 PG (26-34); Mean Corpuscular Volume 86.5 fL (80-100); Monocytes Absolute Auto 500 /uL (0-900); Monocytes Percent Auto 8.6 % (3-14); Neutrophils Absolute Auto 3300 /uL (1500-7000); Neutrophils Percent Auto 56.8 % (50-75); Platelet Count 187 X10^3/uL (150-400); Red Blood Cell Count 2.77 X10^6/uL (4.0-5.2); Red Cell Distribution Width 14.3 % (11.6-14.8); White Blood Cell Count 5.8 X10^3/uL (4.5-11.0)
[2021-03-12 05:33] LABS: BUN Creatinine Ratio 16.5 (6-22); Blood Urea Nitrogen 13 mg/dL (7-17); Calcium 7.9 mg/dL (8.4-10.2); Carbon Dioxide 26 mmol/L (22-32); Chloride 108 mmol/L (98-107); Estimated Glomerular Filt Rate > 60.0 mL/min (>60); Glucose 117 mg/dL (80-110); HEMOLYSIS < 15 (0-50); Magnesium 1.8 mg/dL (1.6-2.3); Potassium 3.6 mmol/L (3.4-5.1); Sodium 137 mmol/L (137-145)
[2021-03-12 05:34] LABS: Alanine Aminotransferase 34 IU/L (<35); Albumin 2.8 g/dL (3.5-5.0); Albumin Globulin Ratio 1.1 (1.0-2.8); Alkaline Phosphatase 66 U/L (38-126); Aspartate Aminotransferase 35 IU/L (14-36); Bilirubin Unconjugated 0.1 mg/dL (0.0-1.1); Globulin 2.5 g/dL (1.7-4.1); HEMOLYSIS < 15 (0-50); Total Protein 5.3 g/dL (6.3-8.2)
[2021-03-12 05:38] LABS: Bilirubin Total < 0.1 mg/dL (0.2-1.3)
[2021-03-12 08:00] VITALS: BP 126/62; PULSE 77; RESP 18; TEMP 36.6; O2SAT 95
[2021-03-12 08:19] VITALS: O2SAT 97
[2021-03-12] MEDS: PANTOPRAZOLE 40 MG VIAL IV (09:05)
--- NOTE | 2021-03-12 11:08 | CM.DPC ---
Addendum entered by NAT Cuenca 03/12/21 15:13: ADD: Per MD, labs returned showing normal levels and pt stable for d/c home today. Per RN, pt able to d/c via Dtr POV and no concerns at this time, discharge instructions given. BF Original Note: DCP Cont: Per MD, pt had colonoscopy yesterday which did not show any active bleed or cause of bleed and bm today seemed normal without blood but pt's counts had still been low. So plan of labs around noon and if her levels are normal or increased then plan of d/c home this afternoon. SW met bedside with pt and explained role and MD updated pt during MDR today and pt aware she may d/c home and plans to ask staff for shower around 1100 to be prepared in case she can d/c. Pt states her Dtr lives nearby and can transport at d/c and plan is to stay with Dtr for a couple days for additional support before going back home alone in [place] where she is somewhat isolated from medical care. Pt has no concerns at this time. Plan: SW to follow for labs to be drawn to determine if pt medically stable to d/c home later today via Dtr POV and any further identified needs. NAT Cuenca
[2021-03-12 12:00] VITALS: BP 117/59; PULSE 88; RESP 18; TEMP 36.4; O2SAT 96
[2021-03-12 12:17] LABS: Hematocrit 27.1 % (36-46); Hemoglobin 9.2 g/dL (12.0-16.0)
[2021-03-12 12:33] VITALS: O2SAT 96
--- NOTE | 2021-03-12 13:10 | P.DS_ITS ---
History of Present Illness History of Present Illness Date Patient Seen: 03/12/21 Time Patient Seen: 08:45 Chief complaint: rectal bleeding, started 3 days ago, charles sandoval Narrative: This is a 75-year-old female with a past medical history of osteoarthritis and hypothyroidism who presented to the emergency room with fatigue and rectal bleeding that started 3 days ago. Patient was recently in [place] with her family, having left on Wednesday. During the airport on her return trip home she noticed that she was quite a bit more fatigued after walking the length of the airport. Once arriving at home she largely stayed in bed but then later that evening had an episode bright red blood per rectum. It was large and then over the next day transition to a smaller and smaller amount of very black stools. She denies being any more pale than usual this time but was quite a bit more short of breath and dizzy with exertion. She denies any chest pain, palpitations, orthopnea, or lower extremity edema. She denies prior GI bleeding, her grandson stepped on her right ankle and had been taking some NSAIDs over the prior few days. She had a mild upset stomach yesterday with this had largely resolved, and she denies any nausea, or vomiting including hematemesis. Her last colonoscopy was more than 15 years ago but the patient has been doing either FOBT testing or fit testing every year which has been unremarkable to this point. She denies any previous issues with anesthesia. She denies any history of family members with colon cancer. In the emergency room, the patient was mildly tachycardic and initially hypertensive. She was saturating well on room air. Initial lab evaluation showed a hemoglobin of 7.1 with no other remarkable findings on CBC, MCV is 86.7. Coagulation studies were unremarkable. Chemistries showed a mildly elevated glucose at 1:36 a.m., mild elevations in her transaminase levels at AST of 46 and ALT of 41 respectively. COVID-19 testing was negative. She was ordered for 2 units of packed red blood cells, I evaluated the patient after her 1st unit and she was asymptomatic and felt improved. Will hold the 2nd unit for now pending repeat H&H. If it has responded appropriately, will discontinue her 2nd unit. Patient was admitted under observation status for acute blood loss anemia secondary to GI bleed. According to General surgery, Dr. Loomis, plan is for EGD and colonoscopy tomorrow at noon and she should receive 4 L of GoLYTELY this evening, with 2 L to be given tomorrow morning at 6:00 a.m.. Discharge Providers Provider Date of admission: 03/10/21 17:07 Discharge Date: 03/12/21 Discharge provider: Rodolfo Lainez DO Summary Hospital Course Discharge Diagnosis: 1. Acute blood-loss anemia, present on admission 2. GI bleeding, acute, present on admission 3. Hypothyroidism, chronic 4. Osteoarthritis, chronic 5. Right ankle bruising, present on admission. 6. Transaminitis, present on admission Hospital Course: This is a 75-year-old female with a past medical history of ost eoarthritis and hypothyroidism who presented to the emergency room with fatigue and rectal bleeding that started 3 days prior . She was admitted under observation status for acute blood loss anemia secondary to GI bleeding. She was started on IV PPI BID given unclear source of bleeding. It is still unclear if this was an upper or lower source at this time after endoscopy and colonoscopy showed mild hypertrophy at the duodenal bulb, and some diverticulae but no overt source of bleeding. Her hemoglobin remained fairly stable, and improved to a bit over 9 on the day of discharge. She had no further melanotic stools, and the last 2 bowel movements were brown. Given stability, surgery recommended outpatient follow-up with primary care provider or GI for possible capsule endoscopy if there is continued bleeding. I do recommend that she get a repeat CBC with her primary care provider in about a week. Patient also had a mild transaminitis which improved over the course of her admission. This was either due to a drug-induced liver injury or her acute blood loss anemia. Transaminase levels were within normal limits on the day of discharge. Given no obvious source, will continue to treat as a possible upper GI bleed with continued oral PPI BID as an outpatient. Status at Discharge Cognitive/behavioral status at discharge: oriented Functional status at discharge: independent ambulation Overall status at discharge: patient is progressing back to baseline Time Spent with Patient Time spent: Greater than 30 minutes Exam Vital Signs (past 8 hours): - 03/12/21 08:00 03/12/21 08:19 03/12/21 12:00 Temperature 97.8 F 97.6 F Pulse Rate 77 88 Respiratory Rate 18 18 Blood Pressure 126/62 117/59 L Pulse Oximetry 95 97 96 03/12/21 12:33 Temperature Pulse Rate Respiratory Rate Blood Pressure Pulse Oximetry 96 Oxygen Delivery Method Room Air Oxygen Flow Rate 0 Narrative Exam Narrative: GENERAL APPEARANCE: Well developed, well nourished, in no acute distress. SKIN: Inspection of the skin reveals no rashes, ulcerations or petechiae. HEENT: Normocephalic atraumatic, extraocular muscles are intact, oropharynx is clear and mucous membranes are moist, neck is supple without adenopathy NECK: Supple and symmetric. There was no thyroid enlargement, and no tenderness, or masses were felt. CHEST: Normal AP diameter and normal contour without any kyphoscoliosis. LUNGS: Auscultation of the lungs revealed no wheezes, rhonchi, or rales. CARDIOVASCULAR: There was a regular rate and rhythm without any murmurs, gallops, rubs. Peripheral pulses were 2+ and symmetric. ABDOMEN: Soft and nontender with normal bowel sounds. No ascites was noted. MUSCULOSKELETAL: There was mild tenderness to the patient's right ankle with mild ecchymosis in her ankle. She had no lateral malleolar tenderness, and has been able to ambulate on her ankle without pain. EXTREMITIES: No cyanosis, clubbing or edema. NEUROLOGIC: Alert and oriented x 3. Normal affect. Gait was normal. Strength is +5/5 in the Upper Extremities and Lower Extremities Bilaterally. Sensation to touch was normal. Objective Labs Result Diagrams: 03/12/21 12:05 03/12/21 05:07 Labs: Laboratory Results - last 24 hr 03/11/21 03/12/21 03/12/21 16:08 05:07 05:07 WBC 5.8 RBC 2.77 L Hgb 8.5 L 8.0 L Hct 25.3 L 23.9 L MCV 86.5 MCH 28.9 MCHC 33.4 RDW 14.3 Plt Count 187 Neut % (Auto) 56.8 Lymph % (Auto) 31.4 [place] % (Auto) 8.6 Eos % (Auto) 2.5 Baso % (Auto) 0.7 Neut # (Auto) 3300 Lymph # (Auto) 1800 [place] # (Auto) 500 Eos # (Auto) 100 Baso # (Auto) 0 Sodium Potassium Chloride Carbon Dioxide BUN Creatinine Estimated GFR BUN/Creatinine Ratio Glucose Calcium Magnesium Total Bilirubin < 0.1 L Conjugated Bilirubin 0.0 Unconjugated Bilirubin 0.1 AST 35 ALT 34 Alkaline Phosphatase 66 Total Protein 5.3 L Albumin 2.8 L Globulin 2.5 Albumin/Globulin Ratio 1.1 03/12/21 03/12/21 05:07 12:05 WBC RBC Hgb 9.2 L Hct 27.1 L MCV MCH MCHC RDW Plt Count Neut % (Auto) Lymph % (Auto) [place] % (Auto) Eos % (Auto) Baso % (Auto) Neut # (Auto) Lymph # (Auto) [place] # (Auto) Eos # (Auto) Baso # (Auto) Sodium 137 Potassium 3.6 Chloride 108 H Carbon Dioxide 26 BUN 13 Creatinine 0.79 Estimated GFR > 60.0 BUN/Creatinine Ratio 16.5 Glucose 117 H Calcium 7.9 L Magnesium 1.8 Total Bilirubin Conjugated Bilirubin Unconjugated Bilirubin AST ALT Alkaline Phosphatase Total Protein Albumin Globulin Albumin/Globulin Ratio PFSH Medical History (Updated 03/10/21 @ 19:23 by Sarina Loomis MD) Hypothyroidism Osteoarthritis Surgical History H/O: hysterectomy History of bilateral knee replacement History of hip surgery Social History household members: spouse Smoking Status: Never smoker Discharge Plan Discharge Plan Patient Disposition: Home Provider Discharge Comment: You were admitted to the hospital with GI bleeding. It is not entirely clear where this bleeding came from after your EGD and colonoscopy. Please follow up with your PCP to possibly obtain referral for a capsule endoscopy. Discharge orders & Medications Prescriptions: New pantoprazole 40 mg tablet,delayed release (DR/EC) 40 mg PO BID 30 Days Qty: 60 RF: 0 Continued levothyroxine 88 mcg tablet 88 mcg PO DAILY RF: 0 Diet/Activity/Treatments Diet: Diet as Tolerated Activity: As tolerated Quality VTE Deep Vein Thrombosis/Pulmonary Embolism Present on Admission: No MIPS - Admit I confirm the patient?s Advance Care Plan is present, Code status is documented, Surrogate decision maker is in patient?s record [If Yes, STOP here]: Yes MIPS - DC The patient has current or prior documentation of left ventricular ejection fraction (LVEF) less than 40%, or moderate or severely depressed left ventricular systolic function.: No
--- NOTE | 2021-03-12 14:08 | PC.NURSE ---
PT DISCHARGED TO HOME FOLLOWING FINAL BLOOD DRAW WHICH SHOWS INCREASING HGB/HCT AND NO EVIDENCE OF FURTHER BLEEDING-
== END 2021-03-12 14:05 | disposition home or self-care (01) | DRG 378 ==
LOC: ED 16:03 → ICU 19:01 → AC 03-12 11:36 → ICU 03-12 11:36
PROVIDERS: Surgery; Admitting Provider Internal Medicine; Emergency Provider Emergency Medicine; Referring Provider Emergency Medicine; Visit Provider Internal Medicine
PROC: 0DJ08ZZ Inspection of Upper Intestinal Tract, Via Natural or Artificial Opening Endoscopic (ICD-10-PCS; CPT 43235; principal; 2021-03-11 12:00)
PROC: 0DJD8ZZ Inspection of Lower Intestinal Tract, Via Natural or Artificial Opening Endoscopic (ICD-10-PCS; CPT 45378; 2021-03-11 12:00)
DX: K62.5 Hemorrhage of anus and rectum (principal); D62 Acute posthemorrhagic anemia; R74.01 Elevation of levels of liver transaminase levels; E03.9 Hypothyroidism, unspecified; Z20.822 Contact with and (suspected) exposure to COVID-19
CPT/HCPCS: 36415; 36430; 36592; 80048; 80053; 80076; 81003; 82272; 83735; 84443; 85014; 85018; 85025; 85610; 85730; 86850; 86900; 86901; 87635; 87797; 90471; 90656; 93005; 93010; 96374; 96375; 99285; C9803; P9016; C9113; J2250; J2405; J3010; Q2038

== ENCOUNTER 2021-03-14 00:14 | Emergency (ER) | payer OTHER, SELFPAY ==
[2021-03-10 17:28] VITALS: BMI 29.4
[2021-03-14] VITALS (26 sets, daily range): BP systolic 103–142; BP diastolic 54–66; PULSE 64–92; RESP 9–34; TEMP 36.5–36.9; O2SAT 78–99; BMI 29.9
--- NOTE | 2021-03-14 00:25 | DI.RAD.S_ITS ---
PROCEDURE: XR CHEST 1V INDICATIONS: Shortness of breath TECHNIQUE: One view of the chest was acquired. COMPARISON: None. FINDINGS: Surgical changes and devices: None. Lungs and pleura: Lungs are clear. No pleural effusions or pneumothorax. Mediastinum: Mediastinal contours appear normal. Heart size is normal. Bones and chest wall: No suspicious bony lesions. Overlying soft tissues appear unremarkable. IMPRESSION: No acute cardiopulmonary disease process. Dictated by: Aydee Crawford MD, PhD on 03/14/2021 at 8:43 Approved by: Aydee Crawford MD, PhD on 03/14/2021 at 8:44
[2021-03-14] MEDS: SODIUM CHLORIDE 0.9% 1,000 ML 1000 ML IV (00:45)
[2021-03-14 00:58] LABS: Hematocrit 24.2 % (36-46); Hemoglobin 8.2 g/dL (12.0-16.0); Mean Corpuscular HGB Conc 33.7 % (30-36); Mean Corpuscular Hemoglobin 29.2 PG (26-34); Mean Corpuscular Volume 86.6 fL (80-100); Platelet Count 281 X10^3/uL (150-400); Red Cell Distribution Width 15.3 % (11.6-14.8); White Blood Cell Count 9.1 X10^3/uL (4.5-11.0)
[2021-03-14 00:59] LABS: Add Manual Diff / Slide Review YES
[2021-03-14 01:04] LABS: Alanine Aminotransferase 34 IU/L (<35); Albumin 3.3 g/dL (3.5-5.0); Albumin Globulin Ratio 1.2 (1.0-2.8); Alkaline Phosphatase 73 U/L (38-126); Aspartate Aminotransferase 35 IU/L (14-36); BUN Creatinine Ratio 27.8 (6-22); Bilirubin Total 0.2 mg/dL (0.2-1.3); Bilirubin Unconjugated 0.2 mg/dL (0.0-1.1); Blood Urea Nitrogen 25 mg/dL (7-17); Calcium 8.1 mg/dL (8.4-10.2); Carbon Dioxide 25 mmol/L (22-32); Chloride 107 mmol/L (98-107); Estimated Glomerular Filt Rate > 60.0 mL/min (>60); Globulin 2.8 g/dL (1.7-4.1); Glucose 137 mg/dL (80-110); HEMOLYSIS < 15 (0-50); Lipase 247 U/L (23-300); Potassium 3.4 mmol/L (3.4-5.1); Sodium 137 mmol/L (137-145); Total Protein 6.1 g/dL (6.3-8.2)
[2021-03-14 01:12] LABS: Creatine Kinase 113 U/L (30-135)
[2021-03-14 01:25] LABS: Troponin I 0.031 ng/mL (0.01-0.034)
[2021-03-14 01:28] LABS: CKMB % Relative Index 1.3 % (1.5-5.0); Creatine Kinase MB 1.52 ng/mL (<2.37)
--- NOTE | 2021-03-14 01:34 | ED.GIBLEED ---
HPI - GI Bleed General Chief complaint: GI Bleed Stated complaint: GI Bleed dx 3 days ago Time Seen by Provider: 03/14/21 00:15 Source: patient Mode of arrival: Wheelchair Limitations: no limitations History of Present Illness HPI Narrative: Patient is a 75-year-old female here for evaluation of bright red blood per rectum and also feeling lightheaded and short of breath and overall fatigue. She was seen here in this emergency department just a couple days ago for same symptoms. She was admitted to the hospital. During that time she did receive 2 units of packed red blood cells. Was evaluated by General surgery. Had an upper endoscopy and a colonoscopy. No definitive source of the bleeding was found. She was sent home on a proton pump inhibitor which she has yet to start. Since her admission to the hospital she has felt somewhat fatigued however this afternoon when she got home from going to the pharmacy she had another episode of bright red blood per rectum. Had no abdominal tenderness during the time. No vomiting. Afterwards she again developed lightheadedness in worsening fatigue and short of breath specifically with exertion. When she is lying down she is feeling much better. She denies any blood thinners. No recent travel. Related Data Home Medications Medication Instructions Recorded Confirmed levothyroxine 88 mcg PO DAILY 03/10/21 03/10/21 Previous Rx's Medication Instructions Recorded pantoprazole 40 mg PO BID 30 Days #60 tab 03/12/21 Allergies Allergy/AdvReac Type Severity Reaction Status Date / Time No Known Drug Allergies Allergy Verified 03/14/21 00:26 Review of Systems Constitutional Constitutional: Reports fatigue, Denies fever(s) and Reports weakness ENT Ears, Nose, Mouth, and Throat: Reports disequilibrium Cardiovascular Cardiovascular: Denies chest pain and Denies dyspnea Respiratory Respiratory: Denies dyspnea Gastrointestinal Gastrointestinal: Denies abdominal pain, Denies melena, Reports hematochezia, Denies nausea and Denies vomiting Genitourinary Genitourinary: Denies hematuria and Denies dysuria Genitourinary: Denies hematuria and Denies dysuria Musculoskeletal Musculoskeletal: Reports system reviewed and no additional complaints, except as documented Integumentary/Breasts Skin/Breast: Reports system reviewed and no additional complaints, except as documented Neurologic Neurologic: Reports disequilibrium and Reports weakness Psychiatric Psychiatric: Denies anxiety Endocrine Endocrine: Reports fatigue Hematologic/Lymphatic On Anticoagulants: No Allergic/Immunologic Allergic/Immunologic: Reports system reviewed and no additional complaints, except as documented Patient History Medical History (Updated 03/14/21 @ 03:52 by Nelson Damon DO) Hypothyroidism Osteoarthritis Surgical History H/O: hysterectomy History of bilateral knee replacement History of hip surgery Social History household members: spouse Smoking Status: Never smoker Smoking Status: Never smoker alcohol intake frequency: holidays/special occasions only Substance Use Type: does not use Exam Initial Vital Signs Initial Vital Signs: Vital Signs Temperature 97.7 F 03/14/21 00:26 Pulse Rate 86 03/14/21 00:26 Respiratory Rate 20 03/14/21 00:26 Blood Pressure 137/66 03/14/21 00:26 Pulse Oximetry 97 03/14/21 00:26 Const General: cooperative and comfortable Limitations: mental status not altered HENMT Head: normal to inspection and normocephalic Resp Effort & Inspection: normal respiratory effort Auscultation: clear to auscultation bilaterally Cardio Rate: regular rate Rhythm: regular rhythm GI Inspection: non-distended Palpation: soft, No firm and No tender Skin Lesions: no lesions Rashes: no rashes Neuro General: patient alert, patient awake and patient oriented x3 Cognition: normal cognition Speech: speech normal Extrem General: normal to inspection and capillary refill normal Psych Appearance: grossly normal and well kempt Scores GCS Velia coma scale eye opening: Spontaneous Velia coma scale verbal response: Orientated Velia coma scale motor response: Obey commands Velia coma scale total score: 15 Course Orders Ordered: ED Orders 03/14/21 00:25 XR chest 1V Stat EKG-12 Lead Stat 03/14/21 00:30 Basic Metabolic Panel Stat Complete Blood Count AUTO DIFF Stat Hepatic (Liver) Panel Stat Lipase Stat Thyroid Stimulating Hormone Stat Troponin & CK Cardiac Panel Stat Type and Screen Stat 03/14/21 03:26 Hemoglobin and Hematocrit Stat Troponin & CK Cardiac Panel Stat 03/14/21 04:04 COVID19 -Nasal swab/Pre-Proc Stat 03/14/21 05:27 Hemoglobin and Hematocrit Stat Discontinued Medications Sodium Chloride (Normal Saline 0.9%) 1,000 mls @ 1,000 mls/hr IV BOLUS ONE Stop: 03/14/21 01:23 Last Infusion: 03/14/21 01:48 Dose: 0 mls/hr Documented by: Admin: 03/14/21 00:45 Dose: 1,000 mls/hr Documented by: SHEEBA Vital Signs Vital signs: Vital Signs - 8 hr 03/14/21 00:26 03/14/21 00:57 03/14/21 01:00 Temperature 97.7 F Pulse Rate 86 69 70 Respiratory Rate 20 9 L 16 Blood Pressure 137/66 Pulse Oximetry 97 97 96 03/14/21 01:30 03/14/21 02:01 03/14/21 02:30 Temperature Pulse Rate 71 90 69 Respiratory Rate 18 12 Blood Pressure Pulse Oximetry 94 78 L 98 03/14/21 03:00 03/14/21 03:41 03/14/21 03:42 Temperature Pulse Rate 68 92 H 87 Respiratory Rate 14 29 H 16 Blood Pressure 130/60 Pulse Oximetry 97 87 L 88 L 03/14/21 04:00 03/14/21 04:01 03/14/21 04:30 Temperature Pulse Rate 66 65 67 Respiratory Rate 14 15 14 Blood Pressure 114/60 127/57 L Pulse Oximetry 96 96 95 03/14/21 05:12 03/14/21 05:13 03/14/21 05:30 Temperature Pulse Rate 78 84 74 Respiratory Rate 18 25 H Blood Pressure 126/63 Pulse Oximetry 86 L 99 99 03/14/21 05:31 03/14/21 06:00 03/14/21 06:01 Temperature Pulse Rate 75 66 66 Respiratory Rate 34 H 14 15 Blood Pressure 142/61 H 118/54 L Pulse Oximetry 99 98 98 03/14/21 06:30 03/14/21 06:31 Temperature Pulse Rate 65 67 Respiratory Rate 16 15 Blood Pressure 103/54 L Pulse Oximetry 95 95 MDM - GI Bleed Medical Records Attestation: I reviewed the patient's medical records. Lab Data Attestation: I reviewed the patient's lab results. Result diagrams: 03/14/21 05:27 03/14/21 00:30 Labs: Lab Results 03/14/21 03/14/21 03/14/21 Range/Units 00:30 00:30 00:30 WBC 9.1 D (4.5-11.0) X10^3/uL RBC 2.80 L (4.0-5.2) X10^6/uL Hgb 8.2 L (12.0-16.0) g/dL Hct 24.2 L (36-46) % MCV 86.6 (80-100) fL MCH 29.2 (26-34) PG MCHC 33.7 (30-36) % RDW 15.3 H (11.6-14.8) % Plt Count 281 (150-400) X10^3/uL Neut % (Auto) Not Reportable Lymph % (Auto) Not Reportable Posey % (Auto) Not Reportable Eos % (Auto) Not Reportable Baso % (Auto) Not Reportable Lymph # (Auto) Not Reportable Posey # (Auto) Not Reportable Baso # (Auto) Not Reportable Total Counted 100 Seg Neutrophils % 72.0 H (38-70) % Band Neutrophils % 1.0 L (3-7) % Lymphocytes % (Manual) 24.0 L (25-45) % Monocytes % (Manual) 2.0 (2-11) % Basophils % (Manual) 1.0 (0-1) % Neutrophils # (Manual) 6643 H (0351-1567) /uL RBC Morphology See below Polychromasia 1+ H Hypochromasia 2+ H Anisocytosis 1+ H Sodium 137 (137-145) mmol/L Potassium 3.4 (3.4-5.1) mmol/L Chloride 107 (98-107) mmol/L Carbon Dioxide 25 (22-32) mmol/L BUN 25 H (7-17) mg/dL Creatinine 0.90 (0.52-1.04) mg/dL Estimated GFR > 60.0 (>60) mL/min BUN/Creatinine Ratio 27.8 H (6-22) Glucose 137 H (80-110) mg/dL Calcium 8.1 L (8.4-10.2) mg/dL Total Bilirubin 0.2 (0.2-1.3) mg/dL Conjugated Bilirubin 0.0 (0.0-0.3) md/dL Unconjugated Bilirubin 0.2 (0.0-1.1) mg/dL AST 35 (14-36) IU/L ALT 34 (<35) IU/L Alkaline Phosphatase 73 (38-126) U/L Total Creatine Kinase (30-135) U/L CK-MB (CK-2) (<2.37) ng/mL CK-MB (CK-2) Rel Index (1.5-5.0) % Troponin I (0.01-0.034) ng/mL Total Protein 6.1 L (6.3-8.2) g/dL Albumin 3.3 L (3.5-5.0) g/dL Globulin 2.8 (1.7-4.1) g/dL Albumin/Globulin Ratio 1.2 (1.0-2.8) Lipase 247 (23-300) U/L TSH (0.47-4.68) uIU/mL SARS-CoV-2 (PCR) (Negative) Blood Type A Negative Antibody Screen Negative 03/14/21 03/14/21 03/14/21 Range/Units 00:30 00:30 03:26 WBC (4.5-11.0) X10^3/uL RBC (4.0-5.2) X10^6/uL Hgb 7.2 L (12.0-16.0) g/dL Hct 21.7 L (36-46) % MCV (80-100) fL MCH (26-34) PG MCHC (30-36) % RDW (11.6-14.8) % Plt Count (150-400) X10^3/uL Neut % (Auto) Lymph % (Auto) Posey % (Auto) Eos % (Auto) Baso % (Auto) Lymph # (Auto) Posey # (Auto) Baso # (Auto) Total Counted Seg Neutrophils % (38-70) % Band Neutrophils % (3-7) % Lymphocytes % (Manual) (25-45) % Monocytes % (Manual) (2-11) % Basophils % (Manual) (0-1) % Neutrophils # (Manual) (0343-1492) /uL RBC Morphology Polychromasia Hypochromasia Anisocytosis Sodium (137-145) mmol/L Potassium (3.4-5.1) mmol/L Chloride (98-107) mmol/L Carbon Dioxide (22-32) mmol/L BUN (7-17) mg/dL Creatinine (0.52-1.04) mg/dL Estimated GFR (>60) mL/min BUN/Creatinine Ratio (6-22) Glucose (80-110) mg/dL Calcium (8.4-10.2) mg/dL Total Bilirubin (0.2-1.3) mg/dL Conjugated Bilirubin (0.0-0.3) md/dL Unconjugated Bilirubin (0.0-1.1) mg/dL AST (14-36) IU/L ALT (<35) IU/L Alkaline Phosphatase (38-126) U/L Total Creatine Kinase 113 (30-135) U/L CK-MB (CK-2) 1.52 (<2.37) ng/mL CK-MB (CK-2) Rel Index 1.3 L (1.5-5.0) % Troponin I 0.031 (0.01-0.034) ng/mL Total Protein (6.3-8.2) g/dL Albumin (3.5-5.0) g/dL Globulin (1.7-4.1) g/dL Albumin/Globulin Ratio (1.0-2.8) Lipase (23-300) U/L TSH 10.7 H (0.47-4.68) uIU/mL SARS-CoV-2 (PCR) (Negative) Blood Type Antibody Screen 03/14/21 03/14/21 03/14/21 Range/Units 03:26 04:04 05:27 WBC (4.5-11.0) X10^3/uL RBC (4.0-5.2) X10^6/uL Hgb 7.4 L (12.0-16.0) g/dL Hct 22.2 L (36-46) % MCV (80-100) fL MCH (26-34) PG MCHC (30-36) % RDW (11.6-14.8) % Plt Count (150-400) X10^3/uL Neut % (Auto) Lymph % (Auto) Posey % (Auto) Eos % (Auto) Baso % (Auto) Lymph # (Auto) Posey # (Auto) Baso # (Auto) Total Counted Seg Neutrophils % (38-70) % Band Neutrophils % (3-7) % Lymphocytes % (Manual) (25-45) % Monocytes % (Manual) (2-11) % Basophils % (Manual) (0-1) % Neutrophils # (Manual) (1437-8878) /uL RBC Morphology Polychromasia Hypochromasia Anisocytosis Sodium (137-145) mmol/L Potassium (3.4-5.1) mmol/L Chloride (98-107) mmol/L Carbon Dioxide (22-32) mmol/L BUN (7-17) mg/dL Creatinine (0.52-1.04) mg/dL Estimated GFR (>60) mL/min BUN/Creatinine Ratio (6-22) Glucose (80-110) mg/dL Calcium (8.4-10.2) mg/dL Total Bilirubin (0.2-1.3) mg/dL Conjugated Bilirubin (0.0-0.3) md/dL Unconjugated Bilirubin (0.0-1.1) mg/dL AST (14-36) IU/L ALT (<35) IU/L Alkaline Phosphatase (38-126) U/L Total Creatine Kinase 91 (30-135) U/L CK-MB (CK-2) TNP (<2.37) ng/mL CK-MB (CK-2) Rel Index TNP (1.5-5.0) % Troponin I 0.021 (0.01-0.034) ng/mL Total Protein (6.3-8.2) g/dL Albumin (3.5-5.0) g/dL Globulin (1.7-4.1) g/dL Albumin/Globulin Ratio (1.0-2.8) Lipase (23-300) U/L TSH (0.47-4.68) uIU/mL SARS-CoV-2 (PCR) Negative (Negative) Blood Type Antibody Screen Imaging Data Chest x-ray: Radiologist's Impression: Preliminary read No acute cardiopulmonary process ECG Data Attestation: I personally reviewed and interpreted this ECG as follows: Prior ECG tracings: not available for review Interpretation: Sinus rhythm Ventricular rate is 70 Pure interval 1-2 milliseconds Normal QRS Normal QTC Nonspecific ST T wave changes MDM Narrative Medical decision making narrative: She has had continued bright red blood per rectum. Initially patient was not tachycardic. Not hypotensive. [place] better when she was lying down. Actually ambulated to the bathroom and states that she feels slightly better than what she did earlier this evening. Initial hemoglobin and hematocrit lower than when she was discharged from the hospital but equal to what her labs were after her 2nd transfusion of packed red blood cells a couple days ago. A repeat hemoglobin and hematocrit shows a drop in both. Patient continues to have a normal blood pressure not tachycardic. I did discuss the case with Dr. Pizano with General surgery who stated that since the patient has received an upper endoscopy and a colonoscopy within the past 48 hours he would not be indicated to repeat this despite her continued symptoms. He recommended that the patient be transferred to a facility that has the capability of doing tagged red blood cell tracing or a capsule endoscopy as her symptoms could be related to a small-bowel bleed. Discussed the case with [facility] and there were no beds available. Discussed the case with [facility] in [place] [facility] and there was no bed availability. Discussed the case with [facility] in [place]. They stated there was limited bed availability. He was at this point we noticed the patient had [employer] insurance. I did discuss the case with the [place] physician who stated that they recommend the patient be sent to [facility] however they cleared us to send her to any hospital that had bed availability. I discussed the case with the [facility] and there was no bed availability. Discussed the case with [facility] and there is no bed availability. We then reestablish contact with [facility]. [facility] states that they believe that they will have bed availability later today. A repeat H&H shows no further drop. Will continue to hold on blood transfusion. Care turned over to Dr. Jorge to follow-up and disposition. Discharge Plan Departure Patient Disposition: [facility] Clinical Impression: Acute GI bleeding, Anemia Prescriptions: No Action levothyroxine 88 mcg tablet 88 mcg PO DAILY RF: 0 pantoprazole 40 mg tablet,delayed release (DR/EC) 40 mg PO BID 30 Days Qty: 60 RF: 0
[2021-03-14 01:51] LABS: Thyroid Stimulating Hormone 10.7 uIU/mL (0.47-4.68)
[2021-03-14 02:03] LABS: Anisocytosis 1+; Hypochromasia 2+; Neutrophils Absolute Manual 6643 /uL (3000-5900); Polychromasia 1+; Total Cells Counted 100
[2021-03-14 03:40] LABS: Hematocrit 21.7 % (36-46); Hemoglobin 7.2 g/dL (12.0-16.0)
[2021-03-14 03:50] LABS: Creatine Kinase 91 U/L (30-135)
[2021-03-14 04:03] LABS: Troponin I 0.021 ng/mL (0.01-0.034)
[2021-03-14 04:37] LABS: COVID19 -Nasal RAPID Negative (Negative)
--- NOTE | 2021-03-14 05:22 | PC.NURSE ---
Pt has been up to the BR x3 with bloody stools.
[2021-03-14 05:47] LABS: Hematocrit 22.2 % (36-46); Hemoglobin 7.4 g/dL (12.0-16.0)
[2021-03-14 09:29] LABS: Hematocrit 21.9 % (36-46); Hemoglobin 7.2 g/dL (12.0-16.0)
[2021-03-14] MEDS: PANTOPRAZOLE 40 MG VIAL 80 MG IV (10:54)
--- NOTE | 2021-03-14 11:21 | PC.NURSE ---
pt transferred with blood running
== END 2021-03-14 11:21 | disposition short-term general hospital (02) ==
PROVIDERS: Emergency Medicine; Emergency Provider Emergency Medicine
DX: K92.2 Gastrointestinal hemorrhage, unspecified (principal); D64.9 Anemia, unspecified; Z20.822 Contact with and (suspected) exposure to COVID-19
CPT/HCPCS: 36415; 36430; 71045; 80048; 80076; 82550; 82553; 83690; 84443; 84484; 85007; 85014; 85018; 85025; 86850; 86900; 86901; 87635; 93005; 93010; 96361; 96374; 99284; C9803; P9016; C9113

== ENCOUNTER → 2021-03-25 16:05 | Outpatient (CLI) | payer OTHER, SELFPAY ==
[2021-03-10 17:28] VITALS: BMI 29.4
[2021-03-25 17:20] LABS: Hematocrit 35.7 % (36-46); Hemoglobin 11.4 g/dL (12.0-16.0); Mean Corpuscular HGB Conc 31.9 % (30-36); Mean Corpuscular Hemoglobin 27.5 PG (26-34); Mean Corpuscular Volume 86.3 fL (80-100); Platelet Count 559 X10^3/uL (150-400); Red Blood Cell Count 4.13 X10^6/uL (4.0-5.2); Red Cell Distribution Width 15.1 % (11.6-14.8); White Blood Cell Count 7.3 X10^3/uL (4.5-11.0)
== END ==
PROVIDERS: PCP Family Medicine; Referring Provider Family Medicine; Visit Provider Family Medicine
DX: Z87.19 Personal history of other diseases of the digestive system (principal)
CPT/HCPCS: 36415; 85027